=== PATIENT | female | born 1945 | race Two or more races ===

== ENCOUNTER 2017-04-01 18:48 | Emergency (ER) | payer MEDICARE, OTHER ==
[~2017-04-01] VITALS: Ht 172.7 cm; Wt 96.6 kg
[2017-04-01] MEDS ORDERED: ASPI81TA2 PO (19:01)
[2017-04-01] MEDS ORDERED: ATOR40TA PO (19:01)
[2017-04-01] MEDS ORDERED: ESCI10TA10 PO (19:01)
[2017-04-01] MEDS ORDERED: METO25TA4 PO (19:01)
[2017-04-01] MEDS ORDERED: CHOL100011 PO (19:01)
[2017-04-01] MEDS ORDERED: TICA90TA PO (19:01)
[2017-04-01 19:19] LABS: BASOPHIL % 0.3 % (0.0-0.2); EOSINOPHIL # 0.2 10^3/uL (0.0-0.2); EOSINOPHIL % 2.5 % (0.0-5.0); HEMOGLOBIN 13.8 g/dL (12.0-15.0); LYMPHOCYTES # 2.1 10^3/uL (1.0-4.8); LYMPHOCYTES % 32.6 % (24.0-44.0); MEAN CELL HGB 31.7 pg (26-34); MEAN CELL HGB CONCENTRATION 34.8 g/dL (33-37); MEAN CORP VOLUME 91.1 fL (78-100); MEAN PLATELET VOLUME 10.6 fL (7.8-11.0); MONOCYTES # 0.6 10^3/uL (0.3-0.8); MONOCYTES % 9.7 % (5.0-12.0); NEUTROPHIL # 3.4 10^3/uL (1.8-7.7); NEUTROPHILS % 54.7 % (41.0-85.0); RED CELL DISTRIBUTION WIDTH 13.2 % (11.5-14.5); WHITE BLOOD CELL 6.3 10^3/uL (4.5-11.0)
--- NOTE | 2017-04-01 19:22 | NUR ---
PT TO CT VIA WC
--- NOTE | 2017-04-01 19:28 | DIREP ---
PROCEDURE:CHEST 1 VIEW COMPARISON:None. INDICATIONS:LT SIDE WEAKNESS FINDINGS: LUNGS/PLEURA:No significant pulmonary parenchymal abnormalities. No effusions. Shallow expansion of the lungs. Elevated right hemidiaphragm. The lungs are clear. No pneumonia, heart failure or effusions are seen. EKG leads noted. VASCULATURE:Normal. Unremarkable pulmonary vasculature. CARDIAC:Normal. No cardiac silhouette abnormality or cardiomegaly. MEDIASTINUM:Normal. No visible mass or adenopathy. BONES:Normal. No fracture or visible bony lesion. Fusion plate of cervical spine fusion noted. OTHER:Negative. CONCLUSION:No acute disease. Dictated by: Harpal Duff MD on 04/01/2017 at 07:27 PM
[2017-04-01 19:42] LABS: ALANINE AMINOTRANSFERASE 21 U/L (12-78); ALKALINE PHOSPHATASE 138 U/L (50-136); ASPARTATE AMINO TRANSFERASE 30 U/L (0-35); CALCIUM 8.8 mg/dL (8.4-10.5); CARBON DIOXIDE 24.2 mmol/L (20.0-32); GLUCOSE 131 mg/dL (70-110)
--- NOTE | 2017-04-01 19:56 | DIREP ---
PROCEDURE:CT HEAD OR BRAIN W/O CONTRAST COMPARISON:None. INDICATIONS:LEFT SIDE WEAKNESS, LUCAS, HX OF STROKE TECHNIQUE:CT images were created without intravenous contrast. The study was reviewed on brain, subdural and bone windows. FINDINGS: VENTRICLES:The ventricles are normal in size and configuration. Ill-defined of white matter low density changes are seen in the subcortical white matter. Recommend a follow-up MRI of the brain to evaluate for white matter disease or vasculitis. CEREBRUM:Normal cerebral morphology with appropriate carroll white matter differentiation. No acute infarct, bleed or mass lesion is seen. No acute or chronic epidural, subdural or subarachnoid hemorrhage is seen. No edema, midline shift or increased intracranial pressure is seen. CEREBELLUM:Negative. BRAINSTEM:Negative. BASAL CISTERNS:Negative. HEMORRHAGE:No MASS LESION:No ACUTE INFARCT:No SKULL:Normal. SINUSES:Normal. OTHER:None CONCLUSION:Low-density white matter changes in the subcortical white matter. Differential diagnosis includes vasculitis versus a demyelinating disorder. Recommend a follow-up MRI of the brain. No acute infarct, bleed or mass lesion is seen. Dictated by: Harpal Duff MD on 04/01/2017 at 07:54 PM
--- NOTE | 2017-04-01 20:39 | ER.PDOC ---
General Chief Complaint: Stroke Symptoms Stated Complaint: POSS STROKE Time seen by MD: 20:37 Source: patient Exam Limitations: no limitations History of Present Illness Initial Comments Left sided weakness which son noticed yesterday at about 4pm but worse today. Timing/Duration: 24 hours Severity: moderate New Weakness: LUE, LLE Usually: orientedx3 Prior symptoms/Treatment: Similar symptoms previous Allergies: Coded Allergies: morphine (Verified Allergy, Unknown, 04/01/17) niacin (Verified Allergy, Unknown, 04/01/17) warfarin (Verified Allergy, Unknown, 04/01/17) Home Meds Reported Medications Cholecalciferol (Vitamin D3) (VITAMIN D) 1,000 Unit Capsule, 1000 UNIT PO DAILY , CAPSULE 04/01/17 Escitalopram Oxalate (LEXAPRO) 10 Mg Tablet, 10 MG PO DAILY, TABLET 04/01/17 Atorvastatin 40MG (LIPITOR 40MG) 40 Mg Tablet, 40 MG PO DAILY, TAB 04/01/17 Metoprolol Tartrate 25MG (LOPRESSER 25MG) 25 Mg Tablet, 25 MG PO DAILY for HYPERTENSION, #60 TAB 04/01/17 Aspirin (ASPIRIN) 81 Mg Tab.chew, 81 MG PO DAILY, TAB.CHEW 04/01/17 Ticagrelor (BRILINTA) 90 Mg Tablet, 90 MG PO BID, TABLET 04/01/17 Past Medical History Medical History: CVA/TIA/stroke, cardiac problems, high cholesterol Surgical History: cardiac cath, stent Social History Smoking: non-smoker Alcohol Use: occassionally Drug Use: none Review of Systems Constitutional: no symptoms reported Respiratory: no symptoms reported Cardiovascular: no symptoms reported Gastrointestinal: no symptoms reported Psychiatric/Neurological: see HPI All Other Systems: Reviewed and Negative Physical Exam General Appearance: alert, no distress Neuro/Psych: oriented x3, nml speech/cognition, nml mood/affect Cranial Nerves: facial palsy (mild left), forehead spared Peripheral Exam: hemiparesis (left) Respiratory: no resp distress, breath sounds nml CVS: reg rate & rhythm, heart sounds nml Abdomen: non-tender, no organomegaly, no distention Skin: color nml, no rash, warm/dry Extremities: non-tender, nml ROM, no pedal edema Results/Orders Results/Orders Laboratory Tests Test 04/01/17 19:03 White Blood Count 6.3 10^3/uL (4.5-11.0) Red Blood Count 4.36 10^6/uL (4.00-5.20) Hemoglobin 13.8 g/dL (12.0-15.0) Hematocrit 39.7 % (36.0-46.0) Mean Corpuscular Volume 91.1 fL (78-100) Mean Corpuscular Hemoglobin 31.7 pg (26-34) Mean Corpuscular Hemoglobin Concent 34.8 g/dL (33-37) Red Cell Distribution Width 13.2 % (11.5-14.5) Platelet Count 200 10^3/uL (150-400) Mean Platelet Volume 10.6 fL (7.8-11.0) Neutrophils (%) (Auto) 54.7 % (41.0-85.0) Lymphocytes (%) (Auto) 32.6 % (24.0-44.0) Monocytes (%) (Auto) 9.7 % (5.0-12.0) Neutrophils # (Auto) 3.4 10^3/uL (1.8-7.7) Lymphocytes # (Auto) 2.1 10^3/uL (1.0-4.8) Monocytes # (Auto) 0.6 10^3/uL (0.3-0.8) Absolute Immature Granulocyte (auto 0.01 10^3 u/L (0-2) Eosinophils % 2.5 % (0.0-5.0) Basophils % 0.3 % (0.0-0.2) Basophils # 0.0 10^3/uL (0.0-0.1) Eosinophil Count 0.2 10^3/uL (0.0-0.2) Prothrombin Time 9.4 SEC (9.8-11.9) Prothrombin Time INR (Non-Therap) 0.9 Activated Partial Thromboplast Time 24.1 SEC (24.67-30.72) Sodium Level 140 mmol/L (132-145) Potassium Level 4.1 mmol/L (3.6-5.2) Chloride Level 106.0 mmol/L (96-109) Carbon Dioxide Level 24.2 mmol/L (20.0-32) Anion Gap 13.9 Blood Urea Nitrogen 17 mg/dL (7-18) Creatinine 0.95 mg/dL (0.59-1.40) Estimated GFR () 70.0 (>/=60) BUN/Creatinine Ratio 17.0 Glucose Level 131 mg/dL (70-110) Calcium Level 8.8 mg/dL (8.4-10.5) Total Bilirubin 0.4 mg/dL (0.2-1.0) Aspartate Amino Transf (AST/SGOT) 30 U/L (0-35) Alanine Aminotransferase (ALT/SGPT) 21 U/L (12-78) Alkaline Phosphatase 138 U/L (50-136) Total Creatine Kinase 133 U/L (26-192) Creatine Kinase MB 1.4 ng/mL (0.5-3.6) Troponin I < 0.02 ng/mL (0.00-0.05) Total Protein 6.9 g/dL (6.4-8.2) Albumin 3.5 g/dL (3.4-5.0) Globulin 3.4 Percent Immature Gran (Cell Imm) 0.20 % (0.00-0.50) EKG/XRAY/CT/US XRAY: chest (No acute disease) CT Comments: No acute abnormality on CT head Departure Time of Disposition: 21:31 Disposition: 02 XFER SHT-TRM HOSP Impression: Primary Impression: CVA (cerebral vascular accident) Qualified Codes: I63.9 - Cerebral infarction, unspecified Condition: Stable Referrals: PCP,UNKNOWN (PCP) PRIMARY CARE PROVIDER Comments Transfer to [facility] ED for Dr. Heidi GILLIS,NITIN Griffin MD Apr 01, 2017 20:39
--- NOTE | 2017-04-01 21:23 | NUR ---
INÉS BRADY MBA TALKING ON PHONE WITH IN[facility]S CONCERNING TRANSFER
[2017-04-01] MEDS ORDERED: SUBLIMAZE IV STA (21:32)
[2017-04-01] MEDS ORDERED: ASPIRIN PO STA (21:32)
--- NOTE | 2017-04-01 21:34 | NUR ---
LIFESTAR TOYIN, LIFESTAR STATED LIFESTAR WAS AVAILABLE FOR TRANSFER
--- NOTE | 2017-04-01 21:34 | NUR ---
ESCOBAR DR ESCOBAR NOTIFIED OF TRANSFER.
[2017-04-01] MEDS ORDERED: ASPIRIN ONE (21:38)
[2017-04-01] MEDS ORDERED: SUBLIMAZE ONE (21:39)
--- NOTE | 2017-04-01 21:40 | NUR ---
TRANSFER PT AND SON VERBALIZED UNDERSTANDING OF TRANSFER PROCESS AND LIFESTAR FLIGHT.
--- NOTE | 2017-04-01 21:46 | NUR ---
SOCKS' YELLOW SOCKS PLACED ON PATIENT
--- NOTE | 2017-04-01 21:50 | NUR ---
LIFESTAR CREW WITH PT
--- NOTE | 2017-04-01 22:10 | NUR ---
TRANSFER TO [facility] PT LEFT ER WITH LIFESTAR CREW
[2017-04-01 22:13] VITALS: BP 178/86
--- NOTE | 2017-04-01 22:17 | NUR ---
NURSE TO NURSE REPORT REPORT TO GINNY DONALD
== END 2017-04-01 22:10 | disposition short-term general hospital (02) ==
LOC: ER 18:48
DX: I63.9 Cerebral infarction, unspecified (principal); E78.00 Pure hypercholesterolemia, unspecified; G81.94 Hemiplegia, unspecified affecting left nondominant side; Z88.8 Allergy status to other drugs, medicaments and biological substances; Z88.5 Allergy status to narcotic agent; Z79.899 Other long term (current) drug therapy
CPT/HCPCS: 36415; 70450; 71010; 80053; 82550; 82553; 84484; 85025; 85610; 93005; 96374; 99285; J3010